=== PATIENT | male | born 1960 | race African-American/Black ===

== ENCOUNTER → 2016-10-29 | Outpatient (CLI) | payer MEDICARE, MEDICAID ==
[~2016-10-29] VITALS: Ht 175.3 cm; Wt 101.0 kg
[~2016-10-29] MED LIST: DICL2100G TP; DICL4100G TP; DOCU250C91 PO; DSS100 PO; DULO20CA30 PO; OMEP20 PO; OXYC-627 PO; OXYC10 PO; OXYC20 PO; OXYC30TA2 PO
[2016-10-29 11:36] VITALS: BP 133/86
== END | disposition home or self-care (01) ==
LOC: SRCNTR 10:46
PROVIDERS: ATTEND Hospitalist
DX: J44.9 Chronic obstructive pulmonary disease, unspecified (principal); G89.4 Chronic pain syndrome
CPT/HCPCS: G0463

== ENCOUNTER 2016-11-14 11:51 | Inpatient (IN) | payer MEDICARE, MEDICAID ==
[~2016-11-14] VITALS: Ht 175.3 cm; Wt 109.0 kg
[~2016-11-14 11:51] MED LIST changes: -DICL4100G TP; -DSS100 PO; -OMEP20 PO; -OXYC-627 PO; -OXYC20 PO; -OXYC30TA2 PO
[2016-11-14 12:36] VITALS: BP 138/84
[2016-11-14] MEDS ORDERED: PNEUMOCOCCAL VACCINE POLYVALENT 0.5 ML VIAL [PPSV23] IM ONE (12:45)
[2016-11-14] MEDS ORDERED: INFLUENZA VIRUS VACCINE QVS 2016-17 (3YR+)/PF 60 MCG/0.5 ML SYRINGE IM ONE (12:45)
[2016-11-14] MEDS: DULoxetine HCL 20 MG CAPSULE PO SCH (13:44)
[2016-11-14] MEDS: OxyCODONE HCL 20 MG ER TABLET PO SCH ×2 (13:45→19:58)
[2016-11-14 13:46] VITALS: BP 150/96
[2016-11-14] MEDS: OMEPRAZOLE 20 MG CAPSULE PO SCH (13:51)
[2016-11-14 19:58] VITALS: BP 132/62
[2016-11-15 04:22] VITALS: BP 145/89
[2016-11-15 08:05] VITALS: BP 117/63
[2016-11-15] MEDS ORDERED: ACETAMINOPHEN 325 MG TABLET PO PRN (10:30)
[2016-11-15] MEDS ORDERED: BACITRACIN 28.4 GM OINTMENT TP PRN (10:30)
[2016-11-15] MEDS ORDERED: CloNIDine HCL 0.1 MG TABLET PO PRN (10:30)
[2016-11-15] MEDS ORDERED: MAGNESIUM HYDROXIDE SUSPENSION 30 ML UDCUP PO PRN (10:30)
[2016-11-15] MEDS ORDERED: ALBUTEROL SULFATE HFA 90 MCG/PUFF 8 GM INHALER IH PRN (10:30)
[2016-11-15] MEDS ORDERED: IBUPROFEN 600 MG TABLET PO PRN (10:30)
[2016-11-15] MEDS ORDERED: LOPERAMIDE HCL 2 MG CAPSULE PO PRN (10:30)
[2016-11-15] MEDS ORDERED: PETROLATUM,WHITE 71 GM JELLY TP PRN (10:30)
[2016-11-15] MEDS ORDERED: ONDANSETRON HCL 4 MG TABLET PO PRN (10:30)
[2016-11-15] MEDS ORDERED: MAG HYDROX/AL HYDROX/SIMETH ES 30 ML SUSPENSION UDCUP PO PRN (10:30)
[2016-11-15] MEDS ORDERED: BENZOCAINE/MENTHOL LOZENGE MM PRN (10:30)
[2016-11-15] MEDS: OxyCODONE HCL 20 MG ER TABLET PO SCH ×3 (10:33→17:17)
[2016-11-15] MEDS: OMEPRAZOLE 20 MG CAPSULE PO SCH ×2 (10:33→16:28)
[2016-11-15] MEDS: DULoxetine HCL 20 MG CAPSULE PO SCH (10:34)
[2016-11-15 16:40] VITALS: BP 126/83
[2016-11-16 06:10] VITALS: BP 145/93
[2016-11-16 08:04] VITALS: BP 118/66
[2016-11-16] MEDS: DOCUSATE SODIUM 100 MG CAPSULE PO SCH (10:45)
[2016-11-16] MEDS: OMEPRAZOLE 20 MG CAPSULE PO SCH ×2 (10:46→17:53)
[2016-11-16] MEDS: DULoxetine HCL 20 MG CAPSULE PO SCH (10:46)
[2016-11-16] MEDS: OxyCODONE HCL 20 MG ER TABLET PO SCH ×2 (10:46→17:53)
[2016-11-16] MEDS: DICLOFENAC SODIUM 1% 100 GM GEL [2GM] TP PRN (10:54)
[2016-11-16 16:05] VITALS: BP 121/72
[2016-11-17 06:12] VITALS: BP 124/79
[2016-11-17 08:30] VITALS: BP 109/67
[2016-11-17] MEDS: DULoxetine HCL 20 MG CAPSULE PO SCH (09:56)
[2016-11-17] MEDS: DOCUSATE SODIUM 100 MG CAPSULE PO SCH (09:56)
[2016-11-17] MEDS: OMEPRAZOLE 20 MG CAPSULE PO SCH ×2 (09:56→17:22)
[2016-11-17] MEDS: OxyCODONE HCL 20 MG ER TABLET PO SCH ×2 (09:57→17:23)
[2016-11-17 16:12] VITALS: BP 113/67
[2016-11-17] MEDS: DICLOFENAC SODIUM 1% 100 GM GEL [2GM] TP PRN (17:23)
[2016-11-18 07:09] VITALS: BP 129/91
[2016-11-18] MEDS: DULoxetine HCL 20 MG CAPSULE PO SCH (08:34)
[2016-11-18] MEDS: OxyCODONE HCL 10 MG IR TABLET PO PRN ×3 (08:34→22:44)
[2016-11-18] MEDS: OMEPRAZOLE 20 MG CAPSULE PO SCH ×2 (08:35→16:49)
[2016-11-18] MEDS: DOCUSATE SODIUM 100 MG CAPSULE PO SCH (08:35)
[2016-11-18] MEDS: OxyCODONE HCL 20 MG ER TABLET PO SCH ×2 (08:46→16:56)
[2016-11-18 08:48] VITALS: BP 157/78
[2016-11-18 09:22] VITALS: BP 139/95
[2016-11-18] MEDS: DICLOFENAC SODIUM 1% 100 GM GEL [2GM] TP PRN (09:22)
[2016-11-18 14:38] VITALS: BP 121/84
[2016-11-18 16:10] VITALS: BP 140/82
[2016-11-18 22:45] VITALS: BP 133/83
[2016-11-19 01:41] VITALS: BP 142/88
[2016-11-19 08:06] VITALS: BP 131/79
[2016-11-19] MEDS: DOCUSATE SODIUM 100 MG CAPSULE PO SCH (08:46)
[2016-11-19] MEDS: OMEPRAZOLE 20 MG CAPSULE PO SCH ×2 (08:46→17:55)
[2016-11-19] MEDS: DULoxetine HCL 20 MG CAPSULE PO SCH (08:52)
[2016-11-19] MEDS: OxyCODONE HCL 20 MG ER TABLET PO SCH ×2 (08:54→17:55)
[2016-11-19 12:44] VITALS: BP 118/80
[2016-11-19] MEDS: OxyCODONE HCL 10 MG IR TABLET PO PRN (12:44)
[2016-11-19 17:00] VITALS: BP 128/85
[2016-11-20 06:11] VITALS: BP 136/88
[2016-11-20 06:25] VITALS: BP 111/68
[2016-11-20 08:11] VITALS: BP 143/69
[2016-11-20] MEDS: OMEPRAZOLE 20 MG CAPSULE PO SCH (08:28)
[2016-11-20] MEDS: DOCUSATE SODIUM 100 MG CAPSULE PO SCH (08:28)
[2016-11-20] MEDS: DULoxetine HCL 20 MG CAPSULE PO SCH (08:28)
[2016-11-20] MEDS: OxyCODONE HCL 20 MG ER TABLET PO SCH (08:29)
[2016-11-20] MEDS ORDERED: OMEP20 PO (10:58)
[2016-11-20] MEDS ORDERED: DSS100 PO (10:58)
[2016-11-20] MEDS ORDERED: OXYC20 PO (10:58)
[2017-01-31] MEDS ORDERED: DICL4100G TP (10:11)
[2017-01-31] MEDS ORDERED: OXYC-627 PO (10:11)
[2017-03-04] MEDS ORDERED: OXYC10 PO ×2 (11:05)
[2017-03-04] MEDS ORDERED: DICL2100G TP (11:08)
[2017-03-04] MEDS ORDERED: OXYC30TA2 PO (11:08)
== END 2016-11-20 13:15 | disposition home health service (06) | DRG 885 ==
LOC: B2X 13:09
PROVIDERS: ADMIT Psychiatry & Neurology Psychiatry; ATTEND Psychiatry & Neurology Psychiatry
DX: F33.2 Major depressive disorder, recurrent severe without psychotic features (principal); R45.851 Suicidal ideations; F41.9 Anxiety disorder, unspecified; G89.29 Other chronic pain; M54.5 Low back pain; K21.9 Gastro-esophageal reflux disease without esophagitis; I10 Essential (primary) hypertension; J44.9 Chronic obstructive pulmonary disease, unspecified; G47.00 Insomnia, unspecified; F17.200 Nicotine dependence, unspecified, uncomplicated; R26.9 Unspecified abnormalities of gait and mobility; K59.09 Other constipation; E66.9 Obesity, unspecified; Z98.890 Other specified postprocedural states; Z91.19 Patient's noncompliance with other medical treatment and regimen; Z56.0 Unemployment, unspecified; Z59.0 Homelessness; Z91.14 Patient's other noncompliance with medication regimen; Z71.6 Tobacco abuse counseling; Z99.3 Dependence on wheelchair; Z79.899 Other long term (current) drug therapy; Z68.35 Body mass index [BMI] 35.0-35.9, adult; Z28.21 Immunization not carried out because of patient refusal; Z80.1 Family history of malignant neoplasm of trachea, bronchus and lung
CPT/HCPCS: 87081

== ENCOUNTER → 2016-11-26 | Outpatient (CLI) | payer MEDICARE, MEDICAID ==
[~2016-11-26] VITALS: Ht 175.3 cm; Wt 101.0 kg
[~2016-11-26] MED LIST changes: +DICL4100G TP; -DOCU250C91 PO; +DSS100 PO; +OMEP20 PO; +OXYC-627 PO; +OXYC20 PO; +OXYC30TA2 PO
[2016-11-26 09:55] VITALS: BP 142/79
== END | disposition home or self-care (01) ==
LOC: SRCNTR 09:52
PROVIDERS: ATTEND Hospitalist
DX: J44.9 Chronic obstructive pulmonary disease, unspecified (principal); I10 Essential (primary) hypertension; M54.5 Low back pain; G62.9 Polyneuropathy, unspecified; K21.9 Gastro-esophageal reflux disease without esophagitis; E55.9 Vitamin D deficiency, unspecified; G89.29 Other chronic pain; F32.9 Major depressive disorder, single episode, unspecified
CPT/HCPCS: G0463

== ENCOUNTER → 2016-12-24 | Outpatient (CLI) | payer MEDICARE, MEDICAID ==
[~2016-12-24] VITALS: Ht 175.3 cm; Wt 110.0 kg
[2016-12-24 09:46] VITALS: BP 126/85
== END | disposition home or self-care (01) ==
LOC: SRCNTR 09:31
PROVIDERS: ATTEND Hospitalist
DX: J44.9 Chronic obstructive pulmonary disease, unspecified (principal); I10 Essential (primary) hypertension; K21.9 Gastro-esophageal reflux disease without esophagitis; G89.29 Other chronic pain; M54.5 Low back pain
CPT/HCPCS: G0463

== ENCOUNTER → 2017-01-31 | Outpatient (CLI) | payer MEDICARE, MEDICAID ==
[~2017-01-31] VITALS: Ht 175.3 cm; Wt 102.0 kg
[~2017-01-31] MED LIST changes: -DICL2100G TP; -OXYC10 PO; -OXYC30TA2 PO
[2017-01-31 10:07] VITALS: BP 136/85
== END | disposition home or self-care (01) ==
LOC: SRCNTR 09:52
PROVIDERS: ATTEND Hospitalist
DX: J44.9 Chronic obstructive pulmonary disease, unspecified (principal); K21.9 Gastro-esophageal reflux disease without esophagitis; I10 Essential (primary) hypertension; E55.9 Vitamin D deficiency, unspecified; G89.29 Other chronic pain; E03.9 Hypothyroidism, unspecified; E78.5 Hyperlipidemia, unspecified; F32.9 Major depressive disorder, single episode, unspecified
CPT/HCPCS: G0463

== ENCOUNTER 2017-02-14 08:32 | Inpatient (IN) | payer MEDICARE, MEDICAID ==
[~2017-02-14] VITALS: Ht 175.3 cm; Wt 104.0 kg
[2017-02-14 08:41] VITALS: BP 120/76
[2017-02-14] MEDS ORDERED: LORazepam 1 MG TABLET PO PRN (09:00)
[2017-02-14] MEDS ORDERED: ZOLPIDEM TARTRATE 10 MG TABLET PO PRN (09:00)
[2017-02-14] MEDS ORDERED: QUEtiapine FUMARATE 100 MG TABLET PO PRN (09:00)
[2017-02-14] MEDS ORDERED: IBUPROFEN 600 MG TABLET PO PRN (09:45)
[2017-02-14] MEDS ORDERED: LOPERAMIDE HCL 2 MG CAPSULE PO PRN (09:45)
[2017-02-14] MEDS ORDERED: DICLOFENAC SODIUM 1% 100 GM GEL [2GM] TP PRN (09:45)
[2017-02-14] MEDS ORDERED: ONDANSETRON HCL 4 MG TABLET PO PRN (09:45)
[2017-02-14] MEDS ORDERED: ALBUTEROL SULFATE HFA 90 MCG/PUFF 8 GM INHALER IH PRN (09:45)
[2017-02-14] MEDS ORDERED: CloNIDine HCL 0.1 MG TABLET PO PRN (09:45)
[2017-02-14] MEDS ORDERED: OxyCODONE HCL 10 MG IR TABLET PO PRN (09:45)
[2017-02-14] MEDS ORDERED: ACETAMINOPHEN 325 MG TABLET PO PRN (09:45)
[2017-02-14] MEDS ORDERED: BENZOCAINE/MENTHOL LOZENGE [8 LOZENGES/PACKET] PO PRN (09:45)
[2017-02-14] MEDS ORDERED: MAGNESIUM HYDROXIDE SUSPENSION 30 ML UDCUP PO PRN (09:45)
[2017-02-14] MEDS ORDERED: MAG HYDROX/AL HYDROX/SIMETH ES 30 ML SUSPENSION UDCUP PO PRN (09:45)
[2017-02-14] MEDS ORDERED: OxyCODONE HCL 30 MG ER TABLET PO SCH (09:45)
[2017-02-14 09:50] VITALS: BP 122/77
[2017-02-14] MEDS: OxyCODONE HCL 10 MG ER TABLET PO SCH ×2 (10:46→17:33)
[2017-02-14] MEDS: DULoxetine HCL 20 MG CAPSULE PO SCH (10:46)
[2017-02-14] MEDS ORDERED: PNEUMOCOCCAL VACCINE POLYVALENT 0.5 ML VIAL [PPSV23] IM ONE (11:00)
[2017-02-14 16:00] VITALS: BP 144/82
[2017-02-14] MEDS: DOCUSATE SODIUM 100 MG CAPSULE PO SCH (17:08)
[2017-02-14] MEDS: OMEPRAZOLE 20 MG CAPSULE PO SCH (17:08)
[2017-02-15 08:20] VITALS: BP 127/72
[2017-02-15] MEDS: OxyCODONE HCL 10 MG ER TABLET PO SCH ×2 (08:45→16:46)
[2017-02-15] MEDS: DULoxetine HCL 20 MG CAPSULE PO SCH (08:45)
[2017-02-15] MEDS: DOCUSATE SODIUM 100 MG CAPSULE PO SCH ×2 (08:45→16:46)
[2017-02-15] MEDS: OMEPRAZOLE 20 MG CAPSULE PO SCH ×2 (08:48→16:46)
[2017-02-15] MEDS: DICLOFENAC SODIUM 1% 100 GM GEL [2GM] TP PRN ×2 (10:31→19:23)
[2017-02-15] MEDS ORDERED: DICLOFENAC SODIUM 1% 100 GM GEL [2GM] TP PRN (11:00)
[2017-02-15 16:10] VITALS: BP 110/66
[2017-02-16 08:32] VITALS: BP 113/57
[2017-02-16] MEDS: DULoxetine HCL 20 MG CAPSULE PO SCH (08:52)
[2017-02-16] MEDS: OMEPRAZOLE 20 MG CAPSULE PO SCH ×2 (08:52→17:08)
[2017-02-16] MEDS: DOCUSATE SODIUM 100 MG CAPSULE PO SCH ×2 (08:52→17:08)
[2017-02-16] MEDS: OxyCODONE HCL 10 MG ER TABLET PO SCH ×2 (08:53→17:08)
[2017-02-16] MEDS: DICLOFENAC SODIUM 1% 100 GM GEL [2GM] TP PRN ×2 (08:55→17:13)
[2017-02-16] MEDS: PHENYLEPHRINE/SHK LV/MIN OIL/PET 57 GM OINTMENT TP PRN (16:12)
[2017-02-16 16:16] VITALS: BP 136/67
[2017-02-17 06:43] VITALS: BP 127/77
[2017-02-17 08:10] VITALS: BP 118/70
[2017-02-17] MEDS: DULoxetine HCL 20 MG CAPSULE PO SCH (09:00)
[2017-02-17] MEDS: DOCUSATE SODIUM 100 MG CAPSULE PO SCH ×2 (09:20→17:20)
[2017-02-17] MEDS: OMEPRAZOLE 20 MG CAPSULE PO SCH ×2 (09:20→17:20)
[2017-02-17] MEDS: OxyCODONE HCL 10 MG ER TABLET PO SCH ×2 (09:20→17:20)
[2017-02-17 16:12] VITALS: BP 115/77
[2017-02-18 08:19] VITALS: BP 112/68
[2017-02-18] MEDS: DOCUSATE SODIUM 100 MG CAPSULE PO SCH ×2 (09:00→16:58)
[2017-02-18] MEDS: OxyCODONE HCL 10 MG ER TABLET PO SCH ×2 (09:00→16:58)
[2017-02-18] MEDS: DULoxetine HCL 20 MG CAPSULE PO SCH (09:00)
[2017-02-18] MEDS: OMEPRAZOLE 20 MG CAPSULE PO SCH ×2 (09:00→16:58)
[2017-02-18] MEDS: DICLOFENAC SODIUM 1% 100 GM GEL [2GM] TP PRN (10:50)
[2017-02-18] MEDS: PHENYLEPHRINE/SHK LV/MIN OIL/PET 57 GM OINTMENT TP PRN (10:50)
[2017-02-18 16:13] VITALS: BP 119/89
[2017-02-19 08:23] VITALS: BP 119/69
[2017-02-19] MEDS: OMEPRAZOLE 20 MG CAPSULE PO SCH (09:05)
[2017-02-19] MEDS: DULoxetine HCL 20 MG CAPSULE PO SCH (09:05)
[2017-02-19] MEDS: DOCUSATE SODIUM 100 MG CAPSULE PO SCH (09:05)
[2017-02-19] MEDS: OxyCODONE HCL 10 MG ER TABLET PO SCH (09:05)
[2017-03-04] MEDS ORDERED: OXYC10 PO ×2 (11:05)
[2017-03-04] MEDS ORDERED: DICL2100G TP (11:08)
[2017-03-04] MEDS ORDERED: OXYC30TA2 PO (11:08)
== END 2017-02-19 16:30 | disposition home or self-care (01) | DRG 885 ==
LOC: B2X 08:55
PROVIDERS: ADMIT Psychiatry & Neurology Psychiatry; ATTEND Psychiatry & Neurology Psychiatry
DX: F33.2 Major depressive disorder, recurrent severe without psychotic features (principal); R45.851 Suicidal ideations; F41.9 Anxiety disorder, unspecified; G89.4 Chronic pain syndrome; M54.5 Low back pain; K21.9 Gastro-esophageal reflux disease without esophagitis; I10 Essential (primary) hypertension; E55.9 Vitamin D deficiency, unspecified; K59.09 Other constipation; J44.9 Chronic obstructive pulmonary disease, unspecified; G62.9 Polyneuropathy, unspecified; G47.00 Insomnia, unspecified; F17.200 Nicotine dependence, unspecified, uncomplicated; F12.90 Cannabis use, unspecified, uncomplicated; Z80.1 Family history of malignant neoplasm of trachea, bronchus and lung; R26.9 Unspecified abnormalities of gait and mobility; Z53.29 Procedure and treatment not carried out because of patient's decision for other reasons; Z91.19 Patient's noncompliance with other medical treatment and regimen; Z79.899 Other long term (current) drug therapy; Z99.3 Dependence on wheelchair

== ENCOUNTER → 2017-03-04 | Outpatient (CLI) | payer MEDICARE, MEDICAID ==
[~2017-03-04] VITALS: Ht 175.3 cm; Wt 103.5 kg
[~2017-03-04] MED LIST changes: +DICL2100G TP; -DICL4100G TP; -OXYC-627 PO; +OXYC10 PO; -OXYC20 PO; +OXYC30TA2 PO
[2017-03-04 10:58] VITALS: BP 155/93
== END | disposition home or self-care (01) ==
LOC: SRCNTR 10:47
PROVIDERS: ATTEND Hospitalist
DX: J44.9 Chronic obstructive pulmonary disease, unspecified (principal); I10 Essential (primary) hypertension; E55.9 Vitamin D deficiency, unspecified; K21.9 Gastro-esophageal reflux disease without esophagitis; G89.29 Other chronic pain; M54.5 Low back pain
CPT/HCPCS: G0463

== ENCOUNTER → 2017-04-01 | Outpatient (CLI) | payer MEDICARE, MEDICAID ==
[~2017-04-01] VITALS: Ht 175.3 cm; Wt 107.0 kg
[2017-04-01 10:49] VITALS: BP 133/81
== END | disposition home or self-care (01) ==
LOC: SRCNTR 10:13
PROVIDERS: ATTEND Hospitalist
DX: G89.4 Chronic pain syndrome (principal); M54.5 Low back pain
CPT/HCPCS: G0463

== ENCOUNTER → 2017-04-26 | Outpatient (CLI) | payer MEDICARE, MEDICAID ==
[~2017-04-26] VITALS: Ht 175.3 cm; Wt 104.5 kg
[2017-04-26 10:46] VITALS: BP 141/91
== END | disposition home or self-care (01) ==
LOC: SRCNTR 10:27
PROVIDERS: ATTEND Hospitalist
DX: J44.9 Chronic obstructive pulmonary disease, unspecified (principal); I10 Essential (primary) hypertension; G89.4 Chronic pain syndrome; M54.5 Low back pain
CPT/HCPCS: G0463

== ENCOUNTER → 2017-06-07 | Outpatient (CLI) | payer MEDICARE, MEDICAID ==
[~2017-06-07] VITALS: Ht 175.3 cm; Wt 107.0 kg
[2017-06-07 14:51] VITALS: BP 153/93
== END | disposition home or self-care (01) ==
LOC: SRCNTR 10:14
PROVIDERS: ATTEND Hospitalist
DX: J44.9 Chronic obstructive pulmonary disease, unspecified (principal); I10 Essential (primary) hypertension; K21.9 Gastro-esophageal reflux disease without esophagitis; E55.9 Vitamin D deficiency, unspecified; F32.9 Major depressive disorder, single episode, unspecified; G89.29 Other chronic pain
CPT/HCPCS: G0463

== ENCOUNTER → 2017-07-08 | Outpatient (CLI) | payer MEDICARE, MEDICAID ==
[~2017-07-08] VITALS: Ht 175.3 cm; Wt 105.7 kg
[2017-07-08 10:55] VITALS: BP 144/86
== END | disposition home or self-care (01) ==
LOC: SRCNTR 10:11
PROVIDERS: ATTEND Hospitalist
DX: J44.9 Chronic obstructive pulmonary disease, unspecified (principal); G89.29 Other chronic pain; E78.5 Hyperlipidemia, unspecified; I10 Essential (primary) hypertension; K21.9 Gastro-esophageal reflux disease without esophagitis; E55.9 Vitamin D deficiency, unspecified; M54.5 Low back pain
CPT/HCPCS: G0463

== ENCOUNTER → 2017-08-05 | Outpatient (CLI) | payer MEDICARE, MEDICAID ==
[~2017-08-05] VITALS: Ht 175.3 cm; Wt 106.5 kg
[2017-08-05 09:39] VITALS: BP 138/87
== END | disposition home or self-care (01) ==
LOC: SRCNTR 09:28
PROVIDERS: ATTEND Hospitalist
DX: J44.9 Chronic obstructive pulmonary disease, unspecified (principal); I10 Essential (primary) hypertension; G89.29 Other chronic pain; M54.5 Low back pain; K21.9 Gastro-esophageal reflux disease without esophagitis; E55.9 Vitamin D deficiency, unspecified
CPT/HCPCS: G0463

== ENCOUNTER → 2017-09-02 | Outpatient (CLI) | payer MEDICARE, MEDICAID ==
[~2017-09-02] VITALS: Ht 175.3 cm; Wt 104.5 kg
[2017-09-02 10:04] VITALS: BP 132/81
== END | disposition home or self-care (01) ==
LOC: SRCNTR 10:00
PROVIDERS: ATTEND Hospitalist
DX: J44.9 Chronic obstructive pulmonary disease, unspecified (principal); I10 Essential (primary) hypertension; M47.816 Spondylosis without myelopathy or radiculopathy, lumbar region; M48.061 Spinal stenosis, lumbar region without neurogenic claudication; K21.9 Gastro-esophageal reflux disease without esophagitis; E78.5 Hyperlipidemia, unspecified; E55.9 Vitamin D deficiency, unspecified; N28.1 Cyst of kidney, acquired; M54.5 Low back pain; G89.4 Chronic pain syndrome
CPT/HCPCS: G0463

== ENCOUNTER → 2017-10-02 | Outpatient (CLI) | payer MEDICARE, MEDICAID ==
[~2017-10-02] VITALS: Ht 175.3 cm; Wt 110.0 kg
[2017-10-02 12:07] VITALS: BP 151/75
== END | disposition home or self-care (01) ==
LOC: SRCNTR 08:42
PROVIDERS: ATTEND Hospitalist
DX: M54.5 Low back pain (principal)
CPT/HCPCS: G0463

== ENCOUNTER → 2017-11-07 | Outpatient (CLI) | payer MEDICARE, MEDICAID | END | disposition home or self-care (01) | LOC: SRCNTR 10:30 | PROVIDERS: ATTEND Hospitalist | DX: M54.5 Low back pain (principal); J44.9 Chronic obstructive pulmonary disease, unspecified; I10 Essential (primary) hypertension; G89.4 Chronic pain syndrome; K21.9 Gastro-esophageal reflux disease without esophagitis; E55.9 Vitamin D deficiency, unspecified | CPT/HCPCS: G0463 ==

== ENCOUNTER → 2017-12-12 | Outpatient (CLI) | payer MEDICARE, MEDICAID ==
[~2017-12-12] VITALS: Ht 175.3 cm; Wt 100.0 kg
[2017-12-12 12:05] VITALS: BP 143/89
== END | disposition home or self-care (01) ==
LOC: SRCNTR 12:04
PROVIDERS: ATTEND Hospitalist
DX: J44.9 Chronic obstructive pulmonary disease, unspecified (principal); G89.4 Chronic pain syndrome; K21.9 Gastro-esophageal reflux disease without esophagitis; I10 Essential (primary) hypertension; E55.9 Vitamin D deficiency, unspecified; M54.5 Low back pain
CPT/HCPCS: G0463

== ENCOUNTER → 2018-01-09 | Outpatient (CLI) | payer MEDICARE, MEDICAID ==
[~2018-01-09] MED LIST changes: -DULO20CA30 PO; -OMEP20 PO
[2018-01-09 13:10] LABS: BASOPHILS % (AUTO) 1.4 % (0.0-2.0); EOSINOPHILS % (AUTO) 3.2 % (1.0-6.0); HEMATOCRIT 43.8 % (41-53); HEMOGLOBIN 14.4 g/dL (13.5-17.5); LYMPHOCYTES # (AUTO) 3.4 K/uL (1.0-4.8); LYMPHOCYTES % (AUTO) 38.9 % (22.0-44.0); MEAN CORPUSCULAR HEMOGLOBIN 24.1 pg (26.0-34.0); MEAN CORPUSCULAR HGB CONC 32.8 G/dL (31.0-37.0); MEAN CORPUSCULAR VOLUME 73 fL (80-100); MONOCYTES # (AUTO) 0.8 K/uL (0.1-1.0); MONOCYTES % (AUTO) 8.8 % (2.0-9.0); NEUTROPHILS # (AUTO) 4.2 K/uL (1.8-7.7); NEUTROPHILS % (AUTO) 47.7 % (40.0-70.0); PLATELET COUNT (AUTO) 448 K/uL (150-450); RED BLOOD CELL COUNT(AUTO) 5.96 MIL/uL (4.50-5.90); RED CELL DISTRIBUTION WIDTH 14.2 % (11.5-14.5)
[2018-01-09 13:34] LABS: ALANINE AMINOTRANSFERASE 94 U/L (12-78); ALBUMIN 4.1 g/dL (3.4-5.0); ALKALINE PHOSPHATASE 92 U/L (46-116); ANION GAP 7 mmol/L (8-16); ASPARTATE AMINOTRANSFERASE 31 U/L (15-37); BILIRUBIN,TOTAL 0.3 mg/dL (0.1-1.0); CALCIUM, TOTAL 9.1 mg/dL (8.8-10.5); CARBON DIOXIDE 30 mmol/L (22-29); CHLORIDE 101 mmol/L (98-107); CHOL/HDL RATIO 3.8 (4.2-7.3); CHOLESTEROL 156 mg/dL (131-200); CREATININE 1.03 mg/dL (0.60-1.30); GLOMERULAR FILTR. RATE CALC > 60 mL/min (>60); GLUCOSE,RANDOM 118 mg/dL (70-110); HDL CHOLESTEROL 41 mg/dL (40-60); LDL CHOL (CALC.) 98 mg/dL (0-130); POTASSIUM 4.1 mmol/L (3.5-5.1); SODIUM SERUM 138 mmol/L (136-145); THYROID STIMULATING HORMONE 9.14 uIU/mL (0.36-3.74); TOTAL PROTEIN, SERUM 8.3 g/dL (6.4-8.2); TRIGLYCERIDES 85 mg/dL (15-150); UREA NITROGEN, BLOOD 13 mg/dL (7-18)
[2018-01-09 13:37] LABS: APPEARANCE,URINE CLEAR (CLEAR); BILIRUBIN,URINE NEGATIVE (NEGATIVE); GLUCOSE, URINE (UA) NEGATIVE (NEGATIVE); KETONES,URINE NEGATIVE (NEGATIVE); LEUKOCYTE ESTERASE ,URINE NEGATIVE (NEGATIVE); NITRATE,URINE NEGATIVE (NEGATIVE); OCCULT BLOOD,URINE NEGATIVE (NEGATIVE); PH,URINE 5.5 (5.0-8.0); PROTEIN,URINE NEGATIVE (NEGATIVE); UROBILINOGEN,URINE 0.2 mg/dL (<=1.0)
[2018-01-09 13:42] LABS: HEMOGLOBIN A1C 6.3 % (4.5-6.2)
[2018-01-09 13:43] LABS: PROSTATE SPECIFIC ANTIGEN 10.03 ng/mL (0.00-4.00)
== END | disposition home or self-care (01) ==
LOC: LABPV 12:27
PROVIDERS: ATTEND Hospitalist
DX: Z00.01 Encounter for general adult medical examination with abnormal findings (principal); G89.4 Chronic pain syndrome; J44.9 Chronic obstructive pulmonary disease, unspecified; E78.00 Pure hypercholesterolemia, unspecified; I25.10 Atherosclerotic heart disease of native coronary artery without angina pectoris; K21.9 Gastro-esophageal reflux disease without esophagitis; D64.9 Anemia, unspecified; R79.89 Other specified abnormal findings of blood chemistry; R97.20 Elevated prostate specific antigen [PSA]
CPT/HCPCS: 82271; 83036; 84153; 84443

== ENCOUNTER → 2018-01-13 | Outpatient (CLI) | payer MEDICARE, MEDICAID ==
[~2018-01-13] VITALS: Ht 175.3 cm; Wt 106.0 kg
[2018-01-13 09:34] VITALS: BP 141/86
== END | disposition home or self-care (01) ==
LOC: SRCNTR 09:25
PROVIDERS: ATTEND Hospitalist
DX: I10 Essential (primary) hypertension (principal); E03.9 Hypothyroidism, unspecified; E11.9 Type 2 diabetes mellitus without complications; E55.9 Vitamin D deficiency, unspecified; F32.9 Major depressive disorder, single episode, unspecified; G89.29 Other chronic pain; J44.9 Chronic obstructive pulmonary disease, unspecified; K21.9 Gastro-esophageal reflux disease without esophagitis
CPT/HCPCS: G0463

== ENCOUNTER → 2018-02-03 | Outpatient (CLI) | payer MEDICARE, MEDICAID ==
[~2018-02-03] VITALS: Ht 175.3 cm; Wt 96.0 kg
[2018-02-03 10:44] VITALS: BP 138/75
== END | disposition home or self-care (01) ==
LOC: SRCNTR 10:05
PROVIDERS: ATTEND Hospitalist
DX: M54.5 Low back pain (principal); G89.4 Chronic pain syndrome; R97.20 Elevated prostate specific antigen [PSA]; E03.9 Hypothyroidism, unspecified; E11.65 Type 2 diabetes mellitus with hyperglycemia; I10 Essential (primary) hypertension; J44.9 Chronic obstructive pulmonary disease, unspecified
CPT/HCPCS: G0463

== ENCOUNTER → 2018-03-06 | Outpatient (CLI) | payer MEDICARE, MEDICAID ==
[~2018-03-06] VITALS: Ht 175.3 cm; Wt 107.0 kg
[2018-03-06 09:17] VITALS: BP 142/73
== END | disposition home or self-care (01) ==
LOC: SRCNTR 09:07
PROVIDERS: ATTEND Hospitalist
DX: E03.9 Hypothyroidism, unspecified (principal); R97.20 Elevated prostate specific antigen [PSA]; G89.29 Other chronic pain; I10 Essential (primary) hypertension; E11.65 Type 2 diabetes mellitus with hyperglycemia; J44.9 Chronic obstructive pulmonary disease, unspecified; M54.5 Low back pain
CPT/HCPCS: G0463

== ENCOUNTER → 2018-03-27 | Outpatient (CLI) | payer MEDICARE, MEDICAID ==
[~2018-03-27] VITALS: Ht 175.3 cm; Wt 104.0 kg
[2018-03-27 12:17] VITALS: BP 150/80
== END | disposition home or self-care (01) ==
LOC: SRCNTR 12:11
PROVIDERS: ATTEND Hospitalist
DX: I10 Essential (primary) hypertension (principal); M54.5 Low back pain; E03.9 Hypothyroidism, unspecified; R97.20 Elevated prostate specific antigen [PSA]; G89.29 Other chronic pain; E04.9 Nontoxic goiter, unspecified; E11.40 Type 2 diabetes mellitus with diabetic neuropathy, unspecified; J44.9 Chronic obstructive pulmonary disease, unspecified
CPT/HCPCS: G0463

== ENCOUNTER → 2018-04-17 | Outpatient (CLI) | payer MEDICARE, MEDICAID ==
[~2018-04-17] MED LIST changes: +AMLO-512 PO
[2018-04-17 12:21] VITALS: BP 168/91
== END | disposition home or self-care (01) ==
LOC: SRCNTR 12:01
PROVIDERS: ATTEND Hospitalist
DX: I10 Essential (primary) hypertension (principal); E78.00 Pure hypercholesterolemia, unspecified; J44.9 Chronic obstructive pulmonary disease, unspecified; M54.5 Low back pain; G89.4 Chronic pain syndrome; E04.1 Nontoxic single thyroid nodule
CPT/HCPCS: G0463

== ENCOUNTER → 2018-06-19 | Outpatient (CLI) | payer MEDICARE, MEDICAID ==
[~2018-06-19] VITALS: Ht 175.3 cm; Wt 107.5 kg
[2018-06-19 11:09] VITALS: BP 160/74
== END | disposition home or self-care (01) ==
LOC: SRCNTR 10:40
PROVIDERS: ATTEND Hospitalist
DX: E03.9 Hypothyroidism, unspecified (principal); R97.20 Elevated prostate specific antigen [PSA]; E11.9 Type 2 diabetes mellitus without complications; G89.4 Chronic pain syndrome; M54.5 Low back pain; I10 Essential (primary) hypertension; J44.9 Chronic obstructive pulmonary disease, unspecified; K21.9 Gastro-esophageal reflux disease without esophagitis
CPT/HCPCS: G0463